=== PATIENT | female | born 1990 | race Caucasian/White ===

== ENCOUNTER 2020-06-04 18:14 | Emergency (ER) | payer BC, SELFPAY ==
--- NOTE | ~2020-06-04 | US_ITS ---
EXAMINATION: US renal BI DATE: 06/04/2020 22:44 INDICATION: Right abdominal pain. TECHNIQUE: Multiple ultrasound grayscale images of the kidneys were obtained. COMPARISON: None. FINDINGS: The right kidney measures 11.6 x 4.9 x 4.4 cm. The left kidney measures 11.6 x 3.6 x 4.2 cm. The kidn eys demonstrate normal parenchymal echogenicity. There is no hydronephrosis. The bladder is decompres sed. IMPRESSION: 1. Normal kidneys. No hydronephrosis. Reviewed, dictated and finalized at location A.
--- NOTE | ~2020-06-04 | US_ITS ---
EXAMINATION: US OB <= 14 weeks fetus DATE: 06/04/2020 22:42 INDICATION: Right pelvic pain. TECHNIQUE: Real-time transabdominal pelvic ultrasound was performed. COMPARISON: None. FINDINGS: The uterus measures 12.7 x 8.7 x 8.6 cm. There is an intrauterine gestational sac. The crown ru mp length measures 5.3 cm, which correlates with an estimated gestational age of 12 weeks and 0 day(s ) (+/-) 1 week(s) and 1 day(s). heart motion is identified measuring 165 beats per minute (bpm) by M-mode Doppler. The ovaries are not visualized. There is no free fluid in the pelvis. IMPRESSION: 1. Single living intrauterine gestation with estimated date of delivery of 12/17/2020. Reviewed, dictated and finalized at location A. IMPRESSION: 1. Single living intrauterine gestation with estimated date of delivery of 11/20.
[2020-06-04 19:13] VITALS: BP 122/51; PULSE 65; RESP 20; TEMP 36.2; O2SAT 100
[2020-06-04 19:32] LABS: Basophils Percent Auto 0.3 % (0.2-1.2); Eosinophils Absolute Auto 0.1 K/mm3 (0-0.3); Eosinophils Percent Auto 0.9 % (0-4.4); Hematocrit 31.5 % (37.0-47.0); Hemoglobin 11.2 g/dL (12.0-15.0); Immature Granulocyte Absolute 0.03 K/mm3 (0.00-0.031); Immature Granulocyte Percent A 0.5 % (0-0.5); Lymphocytes Absolute Auto 2.06 K/mm3 (0.9-3.2); Lymphocytes Percent Auto 32.4 % (18.3-44.2); Mean Corpuscular HGB Conc 35.6 g/dl (32-36); Mean Corpuscular Hemoglobin 30.9 pg (26-34); Mean Platelet Volume 9.9 fl (7.4-10.4); Monocytes Absolute Auto 0.7 K/mm3 (0.1-0.6); Monocytes Percent Auto 10.9 % (2.6-8.5); Neutrophils Absolute Auto 3.5 K/mm3 (1.3-6.7); Platelet Count Result 226 k/mm3 (150-375); Red Blood Count 3.62 M/mm3 (4.2-5.4); Red Cell Distribution Width 11.4 % (11.5-14.5); White Blood Count 6.4 K/mm3 (4.5-10.0)
[2020-06-04 19:45] LABS: Add Urine Microscopic? YES; Appearance Urine Clear (Clear); Bacteria Urine Trace /hpf; Bilirubin Urine Negative (Negative); Blood Urine Negative (Negative); Color Urine Yellow (Yellow); Glucose Urine UA Negative (Negative); Ketones Urine Negative (Negative); Leukocyte Esterase Ur Negative LEU/UL (Negative); Mucus Urine Rare /lpf; Nitrate Urine Negative (Negative); Protein Urine Negative (Negative); Specific Grav Ur 1.017 (1.001-1.035); Urobilinogen Urine Negative mg/dL (<2.0); WBC Urine 0-3 /hpf
[2020-06-04 19:51] LABS: Anion Gap 8 mmol/L (8-16); Blood Urea Nitrogen 10 mg/dL (7-17); Calcium 8.8 mg/dL (8.4-10.2); Carbon Dioxide 24 mmol/L (22-30); Chloride 101 mmol/L (98-107); Estimated CRCL calculation 121 ml/min; Estimated Glomerular Filt Rate > 60; Glucose 112 mg/dL (65-105); Potassium 3.3 mmol/L (3.4-5.0); Sodium 133 mmol/L (137-145)
--- NOTE | 2020-06-04 21:03 | ED.BACK ---
HPI - Back Pain/Injury General Chief Complaint: Back Pain/Injury Stated Complaint: R FLANK PAIN, HX STONES, 12WKS Time Seen by Provider: 06/04/20 21:03 Source: patient and family Mode of arrival: ambulatory Limitations: no limitations History of Present Illness HPI Narrative: Patient is a 30-year-old female, G1, P0 currently 12 weeks dated by last menses, who presents for evaluation of right-sided flank pain. Patient reports acute onset right-sided flank pain earlier this evening which was severe in nature. Patient denies any current pain. She denies any right lower abdominal pain. Earlier, her pain was associated with nausea and vomiting. Patient states that pain feels very similar to when she has had kidney stones in the past. In the past she was able to pass these on her own, but states it is been quite sometime since she experienced a kidney stone. Patient never required any surgical procedure, stenting or lithotripsy, but was told her kidney stones were very small. She is not currently follow with a urologist. Patient reports urinary frequency. She denies dysuria or hematuria. No vaginal bleeding or loss of fluids. Patient states that this was achieved through intrauterine insemination, patient follows with [facility] at [facility]. Related Data Allergies Allergy/AdvReac Type Severity Reaction Status Date / Time No Known Allergies Allergy Unverified 05/22/19 10:46 Review of Systems Review of Systems: Narrative: CONSTITUTIONAL: Denies fever, chills, or sweats. CARDIOVASCULAR: Denies chest pain, palpitations, or edema. RESPIRATORY: Denies cough or dyspnea. GASTROINTESTINAL: Denies abdominal pain, nausea, vomiting, or diarrhea. GENITOURINARY: Denies dysuria or hematuria. Reports urinary frequency. SKIN: Denies rash or itching. MUSCULOSKELETAL: Reports right flank pain NEUROLOGIC: Denies headache, numbness, or weakness. [facility] Past Medical History Medical History Nephrolithiasis Social History Social History (Updated 06/04/20 @ 22:02 by Jane Santizo MD) Smoking status: Never smoker Alcohol intake: never Substance use: never Living arrangements: with family Gender identity (if verbalized by the patient): Female Exam Narrative: Exam Narrative: GENERAL: Awake, alert, conversant HEAD: Normocephalic, atraumatic. EYES: PERRLA and EOMI. ENT: Nares clear, no rhinorrhea or epistaxis. Mucous membranes moist. NECK: Supple. CHEST: No respiratory distress, breathing even and non labored HEART: Regular rate, sinus rhythm ABDOMEN:Non distended, non tender, no current flank pain, no focal right lower quadrant pain or right upper quadrant pain, no rebound, no rigidity, no guarding EXTREMITIES: Normal range of motion. No edema. SKIN: Warm, dry, no rash. NEURO:No focal deficits. Alert and oriented x3 Course Vital Signs Vital signs: Vital Signs Temperature 36.2 C L 06/04/20 19:13 Pulse Rate 65 06/04/20 19:13 Respiratory Rate 20 06/04/20 19:13 Blood Pressure 122/51 L 06/04/20 19:13 Pulse Oximetry 100 06/04/20 19:13 Temperature 36.2 C L 06/04/20 19:13 Pulse Rate 84 06/04/20 21:33 Respiratory Rate 20 06/04/20 21:33 Blood Pressure 113/63 06/04/20 21:33 Pulse Oximetry 100 06/04/20 21:33 MDM - Back Pain/Injury MDM Narrative Medical decision making narrative: Patient presenting for evaluation of right flank pain that has resolved since being in our waiting room. At the time of assessment, patient has no current pain. No fever, no current abdominal pain or focal right lower quadrant pain. Laboratory results are reassuring. No leukocytosis. Mild anemia. No evidence of urinary tract infection. Given concern for earlier pain and the fact that I cannot verify the patient's intrauterine given no records from her [facility]'s office, I did call an ultrasound which is able to verify an IU
[2020-06-04 21:33] VITALS: BP 113/63; PULSE 84; RESP 20; O2SAT 100
[2020-06-04] MEDS: METOCLOPRAMIDE HCL INJ 10 MG/2 ML VIAL IV PUSH (22:12)
[2020-06-04 23:25] VITALS: BP 111/70; PULSE 74; RESP 18; TEMP 36.8; O2SAT 100
== END 2020-06-04 23:28 | disposition home or self-care (01) ==
PROVIDERS: Emergency Provider Emergency Medicine; PCP Family Medicine
DX: O26.891 Other specified pregnancy related conditions, first trimester (principal); R10.9 Unspecified abdominal pain; Z3A.12 12 weeks gestation of pregnancy
CPT/HCPCS: 36415; 76775; 76801; 80048; 81001; 84702; 85025; 85461; 96374; 99284; J2765

== ENCOUNTER 2023-07-21 08:47 | Emergency (ER) | payer BC, SELFPAY ==
--- NOTE | 2023-07-21 08:57 | ED.URI ---
HPI - URI/Sore Throat General Chief Complaint: Eye Problems Stated Complaint: lt eye irritation,lt earache Time Seen by Provider: 07/21/23 08:56 Source: patient Mode of arrival: ambulatory Limitations: no limitations History of Present Illness HPI Narrative: Patient is a 33-year-old female who presents with left eye irritation that started yesterday. States it was crusted shut this morning and red. Reports pinkeye has been going around daughter stay care. Denies any changes in vision or pain. Also reports left ear irritation. Does report seasonal allergies but does not take any daily allergy medicine. Related Data Allergies Allergy/AdvReac Type Severity Reaction Status Date / Time No Known Allergies Allergy Unverified 05/22/19 10:46 Review of Systems Review of Systems: All systems reviewed & are unremarkable except as noted in HPI and below Constitutional: Constitutional: Denies body ache(s), Denies chills, Denies fatigue, Denies fever(s), Denies headache(s), Denies malaise and Denies weakness Eyes: Eyes: Denies blurry vision, Reports eye discharge, Reports irritation and Denies loss of vision ENT: Reports otalgia, Denies headache(s), Denies nasal discharge, Denies sinus pain and Denies sore throat Cardiovascular: Cardiovascular: Denies chest pain, Denies irregular heart rhythm and Denies dyspnea Respiratory: Respiratory: Denies dyspnea Gastrointestinal: Gastrointestinal: Denies abdominal pain, Denies melena, Denies hematochezia, Denies diarrhea, Denies nausea and Denies vomiting Musculoskeletal: Musculoskeletal: Denies back pain, Denies myalgias and Denies arthralgias Integumentary/Breasts: Skin/Breast: Denies pruritus and Denies rash Neurologic: Denies headache(s), Denies loss of vision and Denies weakness Psychiatric: Psychiatric: Reports no additional psychiatric complaints Endocrine: Endocrine: Denies fatigue PMFSH Past Medical History Medical History Nephrolithiasis Social History Social History Smoking status: Never smoker Alcohol intake: never Substance use: never Living arrangements: with family Gender identity (if verbalized by the patient): Female Comments At time of signature, agree with nursing past medical, surgical, social and family history. There is no relevant family history pertinent to the presenting complaint. Exam Const: General: cooperative, healthy appearing, comfortable, no acute distress and well nourished Nutritional Appearance: well nourished Orientation/consciousness: patient oriented x3 Limitations: no limitations HENMT: Head: normal to inspection, normocephalic and atraumatic Ears: hearing grossly normal bilaterally, external ears normal, TM normal on the right and TM abnormal wth effusion serous on the left Face/Nose/Sinus: Normal external nose present, normal facial exam and face symmetric Face and sinus: normal facial exam and face symmetric Mouth: Yes lip normal Eyes: General: appearance normal, both eyes and all related structures Alignment and Position: alignment normal and position normal Periorbital: periorbital findings normal Eyelids: eyelids normal Conjunctivae: conjunctival abnormality left conjunctival injection diffuse Sclera: sclerae normal Pupils: Equal, round and reactive pupils present EOM: EOMs intact bilaterally Neck: Neck: normal visual inspection, full ROM and supple Chest: Chest palpation & inspection: normal inspection of the chest Resp: Effort & Inspection: normal respiratory effort and able to speak in complete sentences Auscultation: clear to auscultation bilaterally Cardio: Rate: regular rate Rhythm: regular rhythm Heart sounds: S1 normal heart sound present and S2 normal heart sound present GI: Inspection: normal to inspection Skin: General skin exam: normal color and no rashes or lesions noted Neuro: Genera
[2023-07-21 09:10] VITALS: BP 109/55; PULSE 76; RESP 16; TEMP 36.3; O2SAT 100
== END 2023-07-21 10:13 | disposition home or self-care (01) ==
PROVIDERS: Emergency Provider Nurse Practitioner Family; PCP Family Medicine
DX: H10.9 Unspecified conjunctivitis (principal)
CPT/HCPCS: 99213; G0463